=== PATIENT | male | born 1985 | race Caucasian/White ===

== ENCOUNTER 2025-04-21 23:30 | Emergency (ER) | payer OTHER, SELFPAY ==
[2025-04-21 23:48] VITALS: BP 128/75; PULSE 42; RESP 15; TEMP 36.5; O2SAT 99; BMI 23.0
[2025-04-22] MEDS: PROPARACAINE 0.5% OPHTH SOL 1 DROPS EYE-LEFT (00:12)
[2025-04-22] MEDS: FLUORESCEIN 1 MG STRIP EYE-LEFT (00:13)
--- NOTE | 2025-04-22 00:21 | ED_ITS ---
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 Unclear last tetanus. No visual problems. No foreign body sensation in the unaffected right eye. Related Data Home Medications ?Medication ?Instructions ?Recorded ?Confirmed No Known Home Medications 04/21/2504/02 Allergies Allergy/AdvReac Type Severity Reaction Status Date / Time No Known Drug Allergies Allergy Verified 04/21/25 23:47 Patient History Social History Smoking Status: Never smoker Smoking Status: Never smoker Exam Narrative Exam Narrative: GENERAL: Well-developed patient, in mild distress. HEAD: Atraumatic. Normocephalic. EYES: Injected sclerae left, visible foreign body small metallic fragment 9 o'clock position left cornea, embedded, examination after proparacaine and fluorescein, no obvious blood or fluid or foreign body in the anterior chamber on Wood's lamp evaluation, no aqueous flow fluid. ENT: Nose without bleeding, purulent drainage. No other facial trauma obvious besides foreign body fragment left cornea. NECK: Trachea midline. Non tender CARDIOVASCULAR: Regular rate and rhythm without murmurs, gallops, or rubs. RESPIRATORY: Clear to auscultation. Breath sounds equal bilaterally. No wheezes, rales, or rhonchi. GASTROINTESTINAL: Abdomen soft, non-tender, nondistended. EXTREMITIES: No edema or joint tenderness. BACK: Nontender without deformity or crepitance. No flank tenderness. NEURO: AOx3. Motor functions grossly nonfocal. SKIN: No rash or erythema of visible areas Initial Vital Signs Initial Vital Signs: Vital Signs Temperature 97.7 F 04/21/25 23:48 Pulse Rate 42 L 04/21/25 23:48 Respiratory Rate 15 04/21/25 23:48 Blood Pressure 128/75 04/21/25 23:48 Pulse Oximetry 99 04/21/25 23:48 Oxygen Delivery Method Room Air 04/21/25 23:48 Course Orders Ordered: Discontinued Medications Diphtheria/Tetanus/Acell Pertussis (Tet,Diph,Pertuss(Acell),Vac/Pf 0.5 Ml Syringe) 0.5 ml IM .ONCE ONE Stop: 04/22/25 00:32 Last Admin: 04/22/25 00:36 Dose: 0.5 ml Documented By: JARVIS Erythromycin (Erythromycin Ophth 1 Gm Oint) 1 applic EYE-LEFT NOW ONE Stop: 04/22/25 00:32 Last Admin: 04/22/25 00:36 Dose: 1 applic Documented By: JARVIS Fluorescein Sodium (Fluorescein 1 Mg Strip) 1 mg EYE-LEFT NOW PRN PRN Reason: eye pain Last Admin: 04/22/25 00:13 Dose: 1 mg Documented By: JARVIS Proparacaine HCl (Proparacaine 0.5% Ophth Romy) 1 drops EYE-LEFT PRN PRN PRN Reason: metal Last Admin: 04/22/25 00:12 Dose: 1 drop Documented By: JARVIS Vital Signs Vital signs: Vital Signs - 8 hr 04/21/25 23:48 Temperature 97.7 F Pulse Rate 42 L Respiratory Rate 15 Blood Pressure 128/75 Pulse Oximetry 99 Oxygen Delivery Method Room Air Medical Decision Making [facility] Narrative Medical decision making narrative: 39-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 On fluorescein exam after proparacaine with Wood's lamp and even with out magnification there is single small particulate foreign body embedded into the cornea of the left eye, nasal aspect at about 9 o'clock position. No aqueous flow, doubt penetration into anterior chamber. Attempted removal with flicking motion of sterile Q-tip. Unsuccessful, foreign body fragments seems quite embedded. I am reluctant to attempt needle removal attempt particularly on nasal aspect more difficult orientation. Advised removal by local lead electrical controls engineer, given contact information for clinic for tomorrow morning. IM Tdap tetanus updated. Erythromycin ointment antibiotic prescribed/dispensed. Follow up with ophthalmology clinic later today (early tomorrow morning) during regular open hours for attempted foreign body removal. Discharged home with family. Return precautions discussed. 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 Attempted sterile Q-tip flick removal, but the fragment seems fairly adherent. I am reluctant to attempt needle flick over the cornea, would prefer ophthalmology do this. There was no lead electrical controls engineer on-call here now. However ophthalmologists offices are available for ER follow up tomorrow. Given contact information for their offices. We updated your tetanus. Antibiotic ointment erythromycin to use 3 times daily until ophthalmology follow up. Call the office of Ophthalmology tomorrow morning for post ER follow up attempted foreign body removal. Prescriptions: No Action No Known Home Medications Referrals: Patti Swartz MD [Physician, Ophthalmology] Braeden Ott MD [Physician, Ophthalmology] Stand Alone Forms: Patient Portal/API
[2025-04-22] MEDS: ERYTHROMYCIN OPHTH 1 GM OINT 1 APPLIC EYE-LEFT (00:36)
[2025-04-22] MEDS: TET,DIPH,PERTUSS(ACELL),VAC/PF 0.5 ML SYRINGE IM (00:36)
== END 2025-04-22 00:47 | disposition home or self-care (01) ==
PROVIDERS: Emergency Provider Emergency Medicine
DX: T15.02XA Foreign body in cornea, left eye, initial encounter (principal); W44.9XXA Unspecified foreign body entering into or through a natural orifice, initial encounter; Z23 Encounter for immunization
CPT/HCPCS: 90471; 99283; 90715